=== PATIENT | male | born 1970 | race Caucasian/White ===

== ENCOUNTER 2016-05-31 06:06 | Outpatient (CLI) | payer BC ==
[~2016-05-31] VITALS: Ht 190.5 cm; Wt 99.8 kg
[2016-05-31] MEDS ORDERED: LISI-552 PO (13:56)
[2016-06-01] MEDS ORDERED: PRD20T PO (12:23)
[2016-06-01] MEDS ORDERED: HYDR-3812 PO (12:23)
[2016-06-01] MEDS ORDERED: AMOX-355 PO (12:23)
== END 2016-05-31 14:08 ==
LOC: PREOP 06:06
PROVIDERS: ATTEND Otolaryngology Otolaryngology/Facial Plastic Surgery
DX: Z01.818 Encounter for other preprocedural examination (principal); J32.9 Chronic sinusitis, unspecified; H65.23 Chronic serous otitis media, bilateral

== ENCOUNTER 2016-06-01 07:43 | Day surgery (SDC) | payer BC ==
[~2016-06-01] VITALS: Ht 190.5 cm; Wt 99.8 kg
[~2016-06-01 07:43] MED LIST: LISI-552 PO
[2016-06-01] MEDS ORDERED: AMPICILLIN/SULBACTAM 1.5 GM/NS 50 ML IVPB IV ONE ×2 (08:00)
[2016-06-01] MEDS ORDERED: CATHETER FLUSH 10 ML SYR IV PRN (08:00)
[2016-06-01] MEDS ORDERED: HYDROCORTISONE 100 MG/2 ML (Solu-CORTEF) VIAL IV ONE (08:00)
--- NOTE | 2016-06-01 08:18 | Progress Note-Pre Operative ---
Pre-Operative Progress Note H&P Reviewed The H&P was reviewed, patient examined and no changes noted. Date H&P Reviewed: Jun 01, 2016 Time H&P Reviewed: 08:15 Pre-Operative Diagnosis: Bilat Chronic Sinusitis, Deviated SEptum , Bilat Hyper of INf Turbs ANIRUDH HUBER MD Jun 01, 2016 8:17 am
[2016-06-01] MEDS ORDERED: COCAINE HCL 4% 2 ML SYR ONE (08:23)
[2016-06-01] MEDS ORDERED: PHENYLEPHRINE 0.5% NASAL SPR (NEO-SYNEPHRINE) REG ONE (08:23)
[2016-06-01] MEDS ORDERED: LIDOCAINE/EPI 1%-1:100,000 (XYLOCAINE) 20ML ONE (08:23)
[2016-06-01] MEDS ORDERED: BSS 15 ML ONE (08:23)
[2016-06-01 08:27] LABS: BASOPHILS % (AUTO) 0 % (0-10); EOSINOPHILS # (AUTO) 0.2 10^3/uL (0.0-0.3); EOSINOPHILS % (AUTO) 2 % (0-10); LYMPHOCYTES # (AUTO) 2.3 X 10^3 (1.0-4.0); LYMPHOCYTES % (AUTO) 28 % (12-44); MEAN CORPUSCULAR HEMOGLOBIN 32 PG (25-34); MEAN CORPUSCULAR HGB CONC 34 G/DL (32-36); MEAN CORPUSCULAR VOLUME 94 FL (80-99); MEAN PLATELET VOLUME 9.6 FL (7.4-10.4); MONOCYTES # (AUTO) 0.8 X 10^3 (0.0-1.0); MONOCYTES % (AUTO) 10 % (0-12); NEUTROPHILS % (AUTO) 60 % (42-75); PLATELET COUNT 249 10^3/uL (130-400); RED BLOOD COUNT 5.01 10^6/uL (4.35-5.85); RED CELL DISTRIBUTION WIDTH 12.5 % (10.0-14.5); WHITE BLOOD COUNT 8.4 10^3/uL (4.3-11.0)
[2016-06-01] MEDS ORDERED: ROCURONIUM 50 MG/5 ML (ZEMURON) VIAL IV ONE (08:27)
[2016-06-01] MEDS ORDERED: DEXAMETHASONE PF 10 MG/ML (DECADRON) VIAL ONE (08:27)
[2016-06-01] MEDS ORDERED: SEVOFLURANE (ULTANE) 15 ML INHAL SOLN ONE ×7 (08:27→10:14)
[2016-06-01] MEDS ORDERED: LIDOCAINE PF 2% 10 ML (XYLOCAINE) AMP ONE (08:27)
[2016-06-01] MEDS ORDERED: proPOfol 200 MG/20 ML (DIPRIVAN) VIAL IV ONE (08:27)
[2016-06-01] MEDS ORDERED: ONDANSETRON 4 MG/2 ML (SDV) Z0FRAN ONE (08:27)
[2016-06-01] MEDS ORDERED: fentaNYL INJECTION 100 MCG/2 ML AMP ONE ×2 (08:27→10:02)
[2016-06-01] MEDS ORDERED: MIDAZOLAM 2 MG/2 ML (VERSED) VIAL ONE (08:28)
[2016-06-01] MEDS ORDERED: LACTATED RINGERS 1,000 ML IV PRN (08:29)
[2016-06-01 08:47] VITALS: BP 162/103
[2016-06-01] MEDS ORDERED: LACTATED RINGERS 1,000 ML IV ONE (09:25)
[2016-06-01] MEDS ORDERED: D5 1/2 NS W/KCL 20 MEQ/L 1,000 ML IV SCH (10:22)
--- NOTE | 2016-06-01 10:22 | Progress Note-Post Operative ---
Post-Operative Progess Note Surgeon (s)/Medical Claims Examiner (s) Surgeon ANIRUDH HUBER MD Medical Claims Examiner n/a Pre-Operative Diagnosis Bilat Chronic Sinusitis, Deviated Septum, Bilat Hyper of Inf Turbs Post-Operative Diagnosis same Post-Op Procedure Note Date of Procedure: Jun 01, 2016 Name of Procedure Performed: Bilat ESs, Bilat REd of Inf Turbs, Left Myr with T-tube Description & Findings Description and Findings: n/a Anesthesia Type get Estimated Blood Loss minimal Packing none. Specimen(s) collected/removed Bilat Chronic Sinusitis, Bialt Max sinus cultures with sens ANIRUDH HUBER MD Jun 01, 2016 10:22 am
[2016-06-01] MEDS ORDERED: GLYCOPYRROLATE 0.2 MG/ML (ROBINUL) 2 ML VIAL ONE (10:23)
[2016-06-01] MEDS ORDERED: NEOSTIGMINE (BLOXIVERZ ) 1 MG/1ML 10 ML VIAL ONE (10:23)
[2016-06-01] MEDS ORDERED: HYDROcodone/APAP 5 MG/325 MG (LORTAB) TAB PO PRN (10:30)
[2016-06-01] MEDS ORDERED: ACETAMINOPHEN 325 MG TABLET/CAPLET (TYLENOL) PO PRN (10:30)
[2016-06-01] MEDS ORDERED: predniSONE 20 MG TAB PO ONE (10:30)
[2016-06-01] MEDS ORDERED: morphine INJ 10 MG/ML 1ML (SYR OR VIAL) ONE (10:36)
[2016-06-01] MEDS: morphine INJ 10 MG/ML 1ML (SYR OR VIAL) IVP PRN ×2 (10:40→10:45)
[2016-06-01] MEDS ORDERED: ONDANSETRON 4 MG/2 ML (SDV) Z0FRAN IVP PRN (10:45)
[2016-06-01] MEDS ORDERED: fentaNYL INJECTION 100 MCG/2 ML AMP IVP PRN (10:45)
[2016-06-01 11:40] VITALS: BP 168/110
[2016-06-01 12:10] VITALS: BP 173/114
[2016-06-01] MEDS ORDERED: AMOX-355 PO (12:23)
[2016-06-01] MEDS ORDERED: PRD20T PO (12:23)
[2016-06-01] MEDS ORDERED: HYDR-3812 PO (12:23)
[2016-06-01] MEDS ORDERED: predniSONE 20 MG TAB ONE (12:35)
[2016-06-01 12:40] VITALS: BP 175/119
== END 2016-06-01 13:25 | disposition home or self-care (01) ==
LOC: SDC 07:43
PROVIDERS: ATTEND Otolaryngology Otolaryngology/Facial Plastic Surgery
DX: J32.2 Chronic ethmoidal sinusitis (principal); J32.0 Chronic maxillary sinusitis; J32.1 Chronic frontal sinusitis; J34.3 Hypertrophy of nasal turbinates
CPT/HCPCS: 36415; 85025; 87070; 87075; 87077; 87081; 87101; 87186; 87205; 88305

== ENCOUNTER → 2016-08-29 | Outpatient (CLI) | payer BC ==
[~2016-08-29] MED LIST changes: +AMOX-355 PO; +HYDR-3812 PO; +PRD20T PO
== END ==
LOC: LABNPT 10:25
PROVIDERS: ATTEND Otolaryngology Otolaryngology/Facial Plastic Surgery
DX: Z86.14 Personal history of Methicillin resistant Staphylococcus aureus infection (principal)
CPT/HCPCS: 87070; 87075; 87101; 87205